=== PATIENT | female | born 1960 | race Two or more races ===

== ENCOUNTER 2024-04-23 19:32 | Emergency (ER) | payer MEDICARE ==
[~2024-04-23] VITALS: Ht 152.4 cm; Wt 63.2 kg
[2024-04-23 22:22] VITALS: BP 173/85; PULSE 82; RESP 20; O2SAT 96
[2024-04-23] MEDS: acetaminophen 325mg tablet PO ONE (23:11)
[2024-04-23] MEDS ORDERED: AMLO5TAB16 PO (23:17)
[2024-04-23 23:53] VITALS: TEMP 98.6
== END 2024-04-23 23:53 | disposition home or self-care (01) ==
LOC: ER 19:33
DX: I10 Essential (primary) hypertension (principal); Z88.8 Allergy status to other drugs, medicaments and biological substances
CPT/HCPCS: 99283